=== PATIENT | male | born 1985 | race African-American/Black ===

== ENCOUNTER 2016-06-26 22:35 | Emergency (ER) | payer OTHER ==
[~2016-06-26] VITALS: Ht 175.3 cm; Wt 109.0 kg
[2016-06-26 22:46] VITALS: BP 145/104; PULSE 78; RESP 16; TEMP 98.7; O2SAT 96
--- NOTE | 2016-06-26 22:52 | PD ---
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 He states he was walking [place] when he began having chest pain. It was sudden onset. It was aching in nature and left-sided. It did not radiate. He felt sudden short of breath and had nausea and sweating with it as well. It resolved after about 5 minutes after he sat down in his car. He has had similar episodes like this multiple times last several months but has not been evaluated. No known history of CAD or hypertension. He endorses palpitations. He denies history of anxiety, tobacco, ethanol and illicit drug use. He is to drink lots of red bull but has cut back over the last several weeks. EMS states his vitals were normal and they gave him no medications as he was asymptomatic on arrival. He is currently asymptomatic. Allergies-Medications (Allergen,Severity, Reaction): Coded Allergies: No Known Allergies (Unverified , 06/26/16) Review of Systems Except as stated in HPI: all other systems reviewed are Neg Physical Exam Narrative GENERAL: Well-developed and well-nourished adult male in no acute distress. SKIN: Warm and dry. Good turgor without tenting. HEAD: Normocephalic and atraumatic. EYES: PERRL bilaterally, 5mm. EOMI bilaterally. No injection or icterus present. No proptosis. Lids without edema or erythema. ENT: Buccal mucosa pink and moist. Oropharynx free of erythema, tonsillar hypertrophy, masses, swelling, asymmetry and exudates. Uvula midline and airway patent. NECK: Supple, no midline tenderness, crepitus or step-offs. Trachea midline, no JVD. No cervical or facial lymphadenopathy. CARDIOVASCULAR: Regular rate and rhythm without murmurs, rubs, clicks or gallops. Radial and posterior tibial pulses 2+ bilaterally. No pedal edema. RESPIRATORY: Clear to auscultation bilaterally with symmetrical rise and fall, no distress or use of accessory muscles. GASTROINTESTINAL: Non-tender, non-distended. Normal bowel sounds all 4 quadrants. No masses or organomegaly present. MUSCULOSKELETAL: Patient freely moving all four extremities spontaneously. Extremities without clubbing, cyanosis, or edema. No obvious deformities. NEUROLOGIC: CN II-XII grossly intact. Awake and alert. Motor grossly within normal limits. Normal speech. PSYCHIATRIC: Appropriate mood and affect; insight and judgment normal. Data Data Last Documented VS Vital Signs Date Time Temp Pulse Resp B/P Pulse Ox O2 Delivery O2 Flow Rate FiO2 06/26/16 22:46 98.7 78 16 145/104 96 Orders Electrocardiogram (06/26/16 22:47) B-Type Natriuretic Peptide (06/26/16 22:47) Ckmb (Isoenzyme) Profile (06/26/16 22:47) Complete Blood Count With Diff (06/26/16 22:47) Comprehensive Metabolic Panel (06/26/16 22:47) Magnesium (Mg) (06/26/16 22:47) Prothrombin Time / Inr (Pt) (06/26/16 22:47) Act Partial Throm Time (Ptt) (06/26/16 22:47) Troponin I (06/26/16 22:47) Lipase (06/26/16 22:47) Chest, Single Ap (06/26/16 22:47) Ecg Monitoring (06/26/16 22:47) Bilateral Bp Monitoring (06/26/16 22:47) Iv Access Insert/Monitor (06/26/16 22:47) Oximetry (06/26/16 22:47) Oxygen Administration (06/26/16 22:47) Aspirin Chew (Aspirin Chew) (06/26/16 23:15) D-Dimer (06/26/16 23:17) MDM Medical Decision Making Medical Screen Exam Complete: Yes Emergency Medical Condition: Yes Differential Diagnosis ACS versus pericarditis versus pneumonia versus pancreatitis versus gastritis versus anxiety Narrative Course 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 His partner called 911 after he was having chest pain while walking [place] the [place]. He does have concerning components for ischemia by history. Review of 12-lead performed by EMS reveals no acute ST changes. EKG shows normal sinus rhythm with a rate of 68. There is some T- wave inversion in lead 3 and some T-wave flattening in lead aVF. Peaked T waves in V2 through V4. Patient was given aspirin 162 mg even though he was asymptomatic given the history is suggestive of ischemia and there is some T- wave changes. Chest x-ray and labs pending. Patient was signed out to Dr. Patino. Diagnosis Primary Impression: Chest pain Qualified Code: R07.9 - Chest pain, unspecified type Condition: Stable Junaid Pedersen III Jun 26, 2016 22:52
--- NOTE | 2016-06-26 23:09 | RADRPT ---
EXAM DATE/TIME: 06/26/2016 22:55 [facility] COMPARISON: No previous studies available for comparison. INDICATIONS : Chest pain. MEDICAL HISTORY : None. SURGICAL HISTORY : None. ENCOUNTER: Initial ACUITY: 1 day PAIN SCORE: 7/10 LOCATION: Bilateral chest FINDINGS: A single view of the chest demonstrates the lungs to be symmetrically aerated without evidence of mas s, infiltrate or effusion. The cardiomediastinal contours are unremarkable. Osseous structures are intact. CONCLUSION: Normal examination. Josue Herndon Jr., MD on June 26, 2016 at 23:08 Board Certified Radiologist. This report was verified electronically.
[2016-06-26] MEDS ORDERED: ASPIRIN 81 MG CHEW TAB PO ONE ×2 (23:15→23:45)
[2016-06-26 23:57] LABS: AUTOMATED NEUTROPHIL # 2.5 TH/MM3 (1.8-7.7); BASOPHIL % 0.8 % (0.0-2.0); EOSINOPHIL # 0.1 TH/MM3 (0-0.4); EOSINOPHIL % 2.4 % (0.0-4.0); HEMATOCRIT 41.7 % (39.0-51.0); HEMO FLAGS DIFF FINAL; LYMPH % 39.2 % (9.0-44.0); MEAN CORPUSCULAR HEMOGLOBIN 31.3 PG (27.0-34.0); MEAN CORPUSCULAR HGB CONC 34.4 % (32.0-36.0); MONO % 9.3 % (0.0-8.0); NEUT % 48.3 % (16.0-70.0); PLATELET COUNT 184 TH/MM3 (150-450); RED BLOOD COUNT 4.58 MIL/MM3 (4.50-5.90); RED CELL DISTRIBUTION WIDTH 12.7 % (11.6-17.2); WHITE BLOOD COUNT 5.2 TH/MM3 (4.0-11.0)
[2016-06-27] VITALS: BP 140/88; PULSE 80; RESP 16; O2SAT 100
[2016-06-27 00:11] LABS: APTT (PATIENT) 32.4 SEC (24.3-30.1); PROTHROMBIN TIME - PATIENT 11.3 SEC (9.8-11.6)
[2016-06-27 00:14] LABS: ALT (GPT) 81 U/L (12-78); ANION GAP 9 MEQ/L (5-15); AST (GOT) 35 U/L (15-37); BICARBONATE 22.9 MEQ/L (21.0-32.0); BLOOD UREA NITROGEN 21 MG/DL (7-18); CHLORIDE 108 MEQ/L (98-107); GLOMERULAR FILTRATION RATE 75 ML/MIN (>89); MAGNESIUM 1.9 MG/DL (1.5-2.5); SODIUM (NA) 140 MEQ/L (136-145)
[2016-06-27 00:18] LABS: ALKALINE PHOSPHATASE 59 U/L (45-117); CREATINE KINASE 174 U/L (39-308); TOTAL BILIRUBIN ADULT 0.3 MG/DL (0.2-1.0)
[2016-06-27 00:31] LABS: CKMB 0.7 NG/ML (0.5-3.6)
--- NOTE | 2016-06-27 01:41 | PD ---
Physical Exam Date Seen by Provider: Jun 27, 2016 Time Seen by Provider: 01:39 Narrative 30-year-old male came in with history of chest pain. He was brought in by EMS and seen by the PA. I was supervising him. All his blood test results of back including troponin and d-dimer. Everything is within normal limit. Given his low likelihood of coronary artery disease due to the age I will discharge him at this point. Patient is feeling comfortable. Data Data Last Documented VS Vital Signs Date Time Temp Pulse Resp B/P Pulse Ox O2 Delivery O2 Flow Rate FiO2 06/27/16 00:00 80 16 140/88 100 Nasal Cannula 2 06/26/16 22:46 98.7 Orders Electrocardiogram (06/26/16 22:47) B-Type Natriuretic Peptide (06/26/16 22:47) Ckmb (Isoenzyme) Profile (06/26/16 22:47) Complete Blood Count With Diff (06/26/16 22:47) Comprehensive Metabolic Panel (06/26/16 22:47) Magnesium (Mg) (06/26/16 22:47) Prothrombin Time / Inr (Pt) (06/26/16 22:47) Act Partial Throm Time (Ptt) (06/26/16 22:47) Troponin I (06/26/16 22:47) Lipase (06/26/16 22:47) Chest, Single Ap (06/26/16 22:47) Ecg Monitoring (06/26/16 22:47) Bilateral Bp Monitoring (06/26/16 22:47) Iv Access Insert/Monitor (06/26/16 22:47) Oximetry (06/26/16 22:47) Oxygen Administration (06/26/16 22:47) Aspirin Chew (Aspirin Chew) (06/26/16 23:15) Aspirin Chew (Aspirin Chew) (06/26/16 23:45) D-Dimer (06/26/16 22:50) CKMB (06/26/16 22:50) CKMB% (06/26/16 22:50) Labs Laboratory Tests Test 06/26/16 22:50 White Blood Count 5.2 TH/MM3 Red Blood Count 4.58 MIL/MM3 Hemoglobin 14.3 GM/DL Hematocrit 41.7 % Mean Corpuscular Volume 91.0 FL Mean Corpuscular Hemoglobin 31.3 PG Mean Corpuscular Hemoglobin 34.4 % Concent Red Cell Distribution Width 12.7 % Platelet Count 184 TH/MM3 Mean Platelet Volume 10.0 FL Neutrophils (%) (Auto) 48.3 % Lymphocytes (%) (Auto) 39.2 % Monocytes (%) (Auto) 9.3 % Eosinophils (%) (Auto) 2.4 % Basophils (%) (Auto) 0.8 % Neutrophils # (Auto) 2.5 TH/MM3 Lymphocytes # (Auto) 2.0 TH/MM3 Monocytes # (Auto) 0.5 TH/MM3 Eosinophils # (Auto) 0.1 TH/MM3 Basophils # (Auto) 0.0 TH/MM3 CBC Comment DIFF FINAL Differential Comment Prothrombin Time 11.3 SEC Prothromb Time International 1.0 RATIO Ratio Activated Partial 32.4 SEC Thromboplast Time D-Dimer Quantitative (PE/DVT) LESS THAN 0.19 MG/L FEU Sodium Level 140 MEQ/L Potassium Level 4.0 MEQ/L Chloride Level 108 MEQ/L Carbon Dioxide Level 22.9 MEQ/L Anion Gap 9 MEQ/L Blood Urea Nitrogen 21 MG/DL Creatinine 1.15 MG/DL Estimat Glomerular Filtration 75 ML/MIN Rate Random Glucose 77 MG/DL Calcium Level 8.5 MG/DL Magnesium Level 1.9 MG/DL Total Bilirubin 0.3 MG/DL Aspartate Amino Transf 35 U/L (AST/SGOT) Alanine Aminotransferase 81 U/L (ALT/SGPT) Alkaline Phosphatase 59 U/L Total Creatine Kinase 174 U/L Creatine Kinase MB 0.7 NG/ML Troponin I LESS THAN 0.02 NG/ML B-Type Natriuretic Peptide LESS THAN 2 PG/ML Total Protein 7.2 GM/DL Albumin 3.9 GM/DL Lipase 93 U/L [facility] Supervised Visit with VALERIA: Yes Interpretation(s) Twelve-lead EKG was reviewed by me. Normal sinus rhythm, normal axis, nonspecific ST-T wave changes. Heart rate of 68 bpm. Diagnosis Primary Impression: Chest pain Qualified Code: R07.9 - Chest pain, unspecified type Referrals: Primary Care Physician 2 days Additional Instruction: Please follow-up with your primary care. Return to the ER if the condition worsens or any other new concerns. Disposition: 01 DISCHARGE HOME Condition: Stable Sharmin Patino MD Jun 27, 2016 01:41
--- NOTE | 2016-06-27 11:23 | EKG ---
Date Performed: 06/26/2016 Time Performed: 22:47:11 PTAGE: 30 years EKG: Sinus rhythm NONSPECIFIC T-WAVE ABNORMALITY BORDERLINE ECG NO PREVIOUS TRACING DOCTOR: Bud Rosario Interpretating Date/Time 06/27/2016 11:22:21
== END 2016-06-27 01:50 | disposition home or self-care (01) ==
LOC: NEPE 22:35
DX: R07.9 Chest pain, unspecified (principal); R94.31 Abnormal electrocardiogram [ECG] [EKG]
CPT/HCPCS: 71010; 80053; 82550; 82552; 83690; 83735; 83880; 84484; 85025; 85379; 85610; 85730; 93005

== ENCOUNTER 2016-11-12 20:27 | Emergency (ER) | payer OTHER ==
[~2016-11-12] VITALS: Ht 175.3 cm; Wt 109.0 kg
[2016-11-12 20:32] VITALS: BP 143/92; PULSE 85; RESP 16; TEMP 98.4; O2SAT 95
[2016-11-12] MEDS ORDERED: KETOROLAC TROMETHAMINE 30 MG/ML (IVP) VIAL IV PUSH ONE ×2 (20:45→22:45)
[2016-11-12] MEDS ORDERED: SODIUM CHLORIDE 0.9% FLUSH 10 ML FLUSH IVF PRN (20:45)
--- NOTE | 2016-11-12 20:51 | PD ---
HPI Chief Complaint: Chest Pain Time Seen by Provider: 20:40 Travel History International Travel<30 days: No Contact w/Intl Traveler<30days: No Traveled to known affect area: No History of Present Illness HPI Patient is a 31-year-old male who presents to emergency room with complaints of chest pain. Patient reports that he began to have chest pain around 6 or 7 PM tonight while sitting at his desk. Patient describes the pain as pressure to the right side of his chest, nonradiating in nature. Patient does not have any shortness of breath or diaphoresis with symptoms. Patient reports that he has had similar chest pains in the past and was seen in the emergency room in June for this. Reports that he was discharged home with follow-up with music agent. Patient reports that he did follow-up with a music agent in [place], Dr. Bradley Jung and had a negative nuclear stress test, reports that he was not placed on any medications and was told to follow-up in the office in one year. Reports that he was never told why he had chest pain. Patient denies any trauma to his chest wall, denies any recent travels or trips. Reports that nothing makes his symptoms better or worse. Patient denies history of diabetes, hypertension, hyperlipidemia, denies history of smoking cigarettes or drug abuse. Patient denies family history of early coronary disease or [place]. PFSH Past Medical History Diminished Hearing: No Gastrointestinal Disorders: Yes (Hx ELEVATED LFTs) Tetanus Vaccination: Unknown Influenza Vaccination: Yes Past Surgical History Surgical History: No Previous Surgery Family History Family History: Negative Social History Alcohol Use: No Tobacco Use: No Substance Use: No Allergies-Medications (Allergen,Severity, Reaction): Coded Allergies: No Known Allergies (Unverified , 11/12/16) Reported Meds & Prescriptions Reported Meds & Active Scripts Active No Active Prescriptions or Reported Medications Review of Systems General / Constitutional: No: Fever Eyes: No: Visual changes HENT: No: Headaches Cardiovascular: Positive: Chest Pain or Discomfort, No: Palpitations, Irregular Rhythm, Tachycardia, Diaphoresis, Syncope, Dyspnea on exertion Respiratory: No: Shortness of Breath Gastrointestinal: No: Abdominal Pain Genitourinary: No: Dysuria Musculoskeletal: No: Pain Skin: No Rash Neurologic: No: Weakness Psychiatric: No: Depression Endocrine: No: Polydipsia Hematologic/Lymphatic: No: Easy Bruising Physical Exam Narrative GENERAL: No acute distress, nontoxic SKIN: Focused skin assessment warm/dry. HEAD: Atraumatic. Normocephalic. EYES: Pupils equal and round. No scleral icterus. No injection or drainage. ENT: No nasal bleeding or discharge. Mucous membranes pink and moist. NECK: Trachea midline. No JVD. CARDIOVASCULAR: Regular rate and rhythm. No murmur appreciated. RESPIRATORY: No accessory muscle use. Clear to auscultation. Breath sounds equal bilaterally. GASTROINTESTINAL: Abdomen soft, non-tender, nondistended. Hepatic and splenic margins not palpable. MUSCULOSKELETAL: No obvious deformities. No clubbing. No cyanosis. No edema. NEUROLOGICAL: Awake and alert. No obvious cranial nerve deficits. Motor grossly within normal limits. Normal speech. PSYCHIATRIC: Appropriate mood and affect; insight and judgment normal. Data Data Last Documented VS Vital Signs Date Time Temp Pulse Resp B/P Pulse Ox O2 Delivery O2 Flow Rate FiO2 11/12/16 22:51 18 11/12/16 20:36 85 95 Room Air 11/12/16 20:32 98.4 143/92 Orders Ckmb (Isoenzyme) Profile (11/12/16 20:41) Complete Blood Count With Diff (11/12/16 20:41) Comprehensive Metabolic Panel (11/12/16 20:41) D-Dimer (11/12/16 20:41) Magnesium (Mg) (11/12/16 20:41) Prothrombin Time / Inr (Pt) (11/12/16 20:41) Act Partial Throm Time (Ptt) (11/12/16 20:41) Troponin I (11/12/16 20:41) Lipase (11/12/16 20:41) Chest, Single Ap (11/12/16 20:41) Ecg Monitoring (11/12/16 20:41) Iv Access Insert/Monitor (11/12/16 20:41) Oximetry (11/12/16 20:41) Sodium Chloride 0.9% Flush (Ns Flush) (11/12/16 20:45) Ketorolac Inj (Toradol Inj) (11/12/16 20:45) CKMB (11/12/16 20:45) CKMB% (11/12/16 20:45) Electrocardiogram (11/12/16 20:36) Electrocardiogram (11/12/16 ) Ketorolac Inj (Toradol Inj) (11/12/16 22:45) Labs Laboratory Tests Test 11/12/16 20:45 White Blood Count 4.3 TH/MM3 Red Blood Count 4.67 MIL/MM3 Hemoglobin 14.5 GM/DL Hematocrit 42.2 % Mean Corpuscular Volume 90.4 FL Mean Corpuscular Hemoglobin 31.1 PG Mean Corpuscular Hemoglobin 34.4 % Concent Red Cell Distribution Width 13.5 % Platelet Count 180 TH/MM3 Mean Platelet Volume 9.8 FL Neutrophils (%) (Auto) 48.5 % Lymphocytes (%) (Auto) 37.1 % Monocytes (%) (Auto) 9.9 % Eosinophils (%) (Auto) 3.5 % Basophils (%) (Auto) 1.0 % Neutrophils # (Auto) 2.1 TH/MM3 Lymphocytes # (Auto) 1.6 TH/MM3 Monocytes # (Auto) 0.4 TH/MM3 Eosinophils # (Auto) 0.2 TH/MM3 Basophils # (Auto) 0.0 TH/MM3 CBC Comment DIFF FINAL Differential Comment Prothrombin Time 10.5 SEC Prothromb Time International 1.0 RATIO Ratio Activated Partial 31.3 SEC Thromboplast Time D-Dimer Quantitative (PE/DVT) LESS THAN 0.19 MG/L FEU Sodium Level 139 MEQ/L Potassium Level 4.5 MEQ/L Chloride Level 105 MEQ/L Carbon Dioxide Level 27.3 MEQ/L Anion Gap 7 MEQ/L Blood Urea Nitrogen 17 MG/DL Creatinine 1.14 MG/DL Estimat Glomerular Filtration 91 ML/MIN Rate Random Glucose 88 MG/DL Calcium Level 8.9 MG/DL Magnesium Level 2.3 MG/DL Total Bilirubin 0.4 MG/DL Aspartate Amino Transf 27 U/L (AST/SGOT) Alanine Aminotransferase 48 U/L (ALT/SGPT) Alkaline Phosphatase 68 U/L Total Creatine Kinase 374 U/L Creatine Kinase MB 2.0 NG/ML Creatine Kinase MB % 0.5 % Troponin I LESS THAN 0.02 NG/ML Total Protein 7.6 GM/DL Albumin 4.0 GM/DL Lipase 93 U/L MDM Medical Decision Making Medical Screen Exam Complete: Yes Emergency Medical Condition: Yes Interpretation(s) Vital Signs Date Time Temp Pulse Resp B/P Pulse Ox O2 Delivery O2 Flow Rate FiO2 11/12/16 20:36 85 16 95 Room Air 11/12/16 20:32 98.4 85 16 143/92 95 EKG at 2035: NSR at 82bpm, qt/qtc: 342/380, no acute st or t wave changes Differential Diagnosis Costochondritis, ACS, PE, pneumothorax, chest wall strain, electrolyte abnormality Narrative Course Patient is a 31-year-old male who presents to emergency room for evaluation of chest pain. Patient reports that he began to have chest pain while sitting at his desk tonight around 6 -7 PM tonight. Patient reports that his right-sided chest pain feels similar to his previous episodes of chest pain he had in June. Reports that sometimes his pain goes from the right side of his chest to the left side of his chest. Patient reports that he had a workup by a music agent including nuclear stress test in June which was negative. Patient here for similar symptoms of chest pain. EKG is benign appearing, patient was placed on a registered nurse cardiac, labs including x-ray of the chest ordered. One set of cardiac enzymes ordered to evaluate for infectious etiology of chest pain including but not limited to endocarditis and pericarditis. Plan to give patient a dose of IV Toradol, will monitor patient. Patient with no risk factors for ACS, with no history of hypertension or diabetes or hyperlipidemia or early family history of coronary disease or [place]. I do not think that patient is having an acute coronary symptoms at this time, he also had a negative stress test in June. Plan to monitor and rule out for other etiology of symptoms. Laboratory Tests Test 11/12/16 20:45 White Blood Count 4.3 TH/MM3 (4.0-11.0) Red Blood Count 4.67 MIL/MM3 (4.50-5.90) Hemoglobin 14.5 GM/DL (13.0-17.0) Hematocrit 42.2 % (39.0-51.0) Mean Corpuscular Volume 90.4 FL (80.0-100.0) Mean Corpuscular Hemoglobin 31.1 PG (27.0-34.0) Mean Corpuscular Hemoglobin 34.4 % Concent (32.0-36.0) Red Cell Distribution Width 13.5 % (11.6-17.2) Platelet Count 180 TH/MM3 (150-450) Mean Platelet Volume 9.8 FL (7.0-11.0) Neutrophils (%) (Auto) 48.5 % (16.0-70.0) Lymphocytes (%) (Auto) 37.1 % (9.0-44.0) Monocytes (%) (Auto) 9.9 % (0.0-8.0) Eosinophils (%) (Auto) 3.5 % (0.0-4.0) Basophils (%) (Auto) 1.0 % (0.0-2.0) Neutrophils # (Auto) 2.1 TH/MM3 (1.8-7.7) Lymphocytes # (Auto) 1.6 TH/MM3 (1.0-4.8) Monocytes # (Auto) 0.4 TH/MM3 (0-0.9) Eosinophils # (Auto) 0.2 TH/MM3 (0-0.4) Basophils # (Auto) 0.0 TH/MM3 (0-0.2) CBC Comment DIFF FINAL Differential Comment Prothrombin Time 10.5 SEC (9.8-11.6) Prothromb Time International 1.0 RATIO Ratio Activated Partial 31.3 SEC Thromboplast Time (24.3-30.1) D-Dimer Quantitative (PE/DVT) LESS THAN 0.19 MG/L FEU (0.00-0.50) Sodium Level 139 MEQ/L (136-145) Potassium Level 4.5 MEQ/L (3.5-5.1) Chloride Level 105 MEQ/L (98-107) Carbon Dioxide Level 27.3 MEQ/L (21.0-32.0) Anion Gap 7 MEQ/L (5-15) Blood Urea Nitrogen 17 MG/DL (7-18) Creatinine 1.14 MG/DL (0.60-1.30) Estimat Glomerular Filtration 91 ML/MIN (>89) Rate Random Glucose 88 MG/DL (74-106) Calcium Level 8.9 MG/DL (8.5-10.1) Magnesium Level 2.3 MG/DL (1.5-2.5) Total Bilirubin 0.4 MG/DL (0.2-1.0) Aspartate Amino Transf 27 U/L (15-37) (AST/SGOT) Alanine Aminotransferase 48 U/L (12-78) (ALT/SGPT) Alkaline Phosphatase 68 U/L (45-117) Total Creatine Kinase 374 U/L (39-308) Creatine Kinase MB 2.0 NG/ML (0.5-3.6) Creatine Kinase MB % 0.5 % (0.0-4.0) Troponin I LESS THAN 0.02 NG/ML (0.02-0.05) Total Protein 7.6 GM/DL (6.4-8.2) Albumin 4.0 GM/DL (3.4-5.0) Lipase 93 U/L (73-393) Last Impressions Chest X-Ray 11/12/162040 Signed Impressions: Service Date/Time: Saturday, November 12, 2016 20:57 - CONCLUSION: No acute disease. No significant change has occurred. Shabbir Soto MD All labs and all studies reviewed patient in detail. Patient has resolution of chest pain at this time after given 30 mg of IV Toradol. Repeat EKG at discharge with no acute changes - ekg similar to earlier ekg. I do feel Safe discharging patient to home as he had a negative stress test in June and reports that he had a benign holter monitoring by his music agent. I did offer patient cardiac observation in the chest pain unit for monitoring, patient does not want to be admitted to the hospital. Patient will call his music agent first thing in the morning for earliest follow-up appointment. Patient understands that he may return to the emergency room at any time for further evaluation of the symptoms. Overall, patient does have low risk for cardiac chest pain. Signs and symptoms of when to return to emergency room was reviewed with patient in detail. Diagnosis Primary Impression: Chest pain Qualified Code: R07.9 - Chest pain, unspecified type Patient Instructions: General Instructions Additional Instructions: Please follow-up with your music agent as well as her primary care doctor as soon as possible Return to the emergency room as needed or if symptoms return Scripts No Active Prescriptions or Reported Meds Disposition: 01 DISCHARGE HOME Condition: Stable Tanika Steve DO November 12, 2016 20:51 Tanika Steve DO November 12, 2016 20:51
[2016-11-12 21:11] LABS: AUTOMATED NEUTROPHIL # 2.1 TH/MM3 (1.8-7.7); EOSINOPHIL # 0.2 TH/MM3 (0-0.4); EOSINOPHIL % 3.5 % (0.0-4.0); HEMATOCRIT 42.2 % (39.0-51.0); HEMO FLAGS DIFF FINAL; LYMPH % 37.1 % (9.0-44.0); LYMPHOCYTE # 1.6 TH/MM3 (1.0-4.8); MEAN CELL VOLUME 90.4 FL (80.0-100.0); MEAN CORPUSCULAR HEMOGLOBIN 31.1 PG (27.0-34.0); MEAN CORPUSCULAR HGB CONC 34.4 % (32.0-36.0); MONO % 9.9 % (0.0-8.0); NEUT % 48.5 % (16.0-70.0); PLATELET COUNT 180 TH/MM3 (150-450); RED BLOOD COUNT 4.67 MIL/MM3 (4.50-5.90); RED CELL DISTRIBUTION WIDTH 13.5 % (11.6-17.2); WHITE BLOOD COUNT 4.3 TH/MM3 (4.0-11.0)
[2016-11-12 21:31] LABS: APTT (PATIENT) 31.3 SEC (24.3-30.1); PROTHROMBIN TIME - PATIENT 10.5 SEC (9.8-11.6)
[2016-11-12 21:45] LABS: ALKALINE PHOSPHATASE 68 U/L (45-117); ALT (GPT) 48 U/L (12-78); ANION GAP 7 MEQ/L (5-15); AST (GOT) 27 U/L (15-37); BICARBONATE 27.3 MEQ/L (21.0-32.0); BLOOD UREA NITROGEN 17 MG/DL (7-18); CHLORIDE 105 MEQ/L (98-107); CREATINE KINASE 374 U/L (39-308); GLOMERULAR FILTRATION RATE 91 ML/MIN (>89); MAGNESIUM 2.3 MG/DL (1.5-2.5); POTASSIUM 4.5 MEQ/L (3.5-5.1); SODIUM (NA) 139 MEQ/L (136-145); TOTAL BILIRUBIN ADULT 0.4 MG/DL (0.2-1.0)
--- NOTE | 2016-11-12 22:23 | RADRPT ---
EXAM DATE/TIME: 11/12/2016 20:57 [facility] COMPARISON: CHEST SINGLE AP, June 26, 2016, 22:55. INDICATIONS : Chest pain. MEDICAL HISTORY : None. SURGICAL HISTORY : None. ENCOUNTER: Initial ACUITY: 1 day PAIN SCORE: 7/10 LOCATION: Bilateral chest FINDINGS: A single view of the chest demonstrates the lungs to be symmetrically aerated without evidence of mas s, infiltrate or effusion. The cardiomediastinal contours are unremarkable. Osseous structures are intact. CONCLUSION: No acute disease. No significant change has occurred. Shabbir Soto MD on November 12, 2016 at 22:21 Board Certified Radiologist. This report was verified electronically.
[2016-11-13 00:04] VITALS: BP 142/99; PULSE 85; RESP 18; O2SAT 98
--- NOTE | 2016-11-13 15:32 | EKG ---
Date Performed: 11/12/2016 Time Performed: 20:36:16 PTAGE: 31 years EKG: Sinus rhythm NORMAL ECG Compared to prior tracing no significant change PREVIOUS TRACING 06/26/2016 22.47.11 DOCTOR: Ezequiel Cornejo Interpretating Date/Time 11/13/2016 15:31:46
--- NOTE | 2016-11-13 15:32 | EKG ---
Date Performed: 11/12/2016 Time Performed: 22:45:05 PTAGE: 31 years EKG: Sinus rhythm NORMAL ECG Since PREVIOUS TRACING , no significant change noted PREVIOUS TRACING 11/12/2016 20.36.16 DOCTOR: Ezequiel Cornejo Interpretating Date/Time 11/13/2016 15:32:20
== END 2016-11-13 | disposition home or self-care (01) ==
LOC: NEPE 20:27
DX: R07.9 Chest pain, unspecified (principal); R79.89 Other specified abnormal findings of blood chemistry
CPT/HCPCS: 71010; 80053; 82550; 82552; 83690; 83735; 84484; 85025; 85379; 85610; 85730; 93005; 96374; 96376; 99284; J1885

== ENCOUNTER 2017-04-07 12:10 | Emergency (ER) | payer OTHER ==
[~2017-04-07] VITALS: Ht 175.3 cm; Wt 110.0 kg
[2017-04-07 12:22] VITALS: BP 162/92; PULSE 83; RESP 18; TEMP 99.1; O2SAT 97
[2017-04-07] MEDS ORDERED: SODIUM CHLORIDE 0.9% FLUSH 10 ML FLUSH IVF PRN (12:30)
[2017-04-07] MEDS ORDERED: SODIUM CHLOR 0.9% 1000 ML INJ 1,000 ML IV ONE (12:30)
--- NOTE | 2017-04-07 12:39 | PD ---
HPI Chief Complaint: Cardiac Complaint Time Seen by Provider: 12:25 Travel History International Travel<30 days: No Contact w/Intl Traveler<30days: No Traveled to known affect area: No History of Present Illness HPI This is a 31-year-old male with a history of enlarged heart, who presents today with complaints of cramping of his right upper and right lower extremity earlier today. The patient reports that when he woke up he felt a crampy sensation in his right forearm and right foot. He denies any shortness of breath, chest pain, chest pressure. He states she's been seen by supervising producer for his enlarged heart and they told him that at this point there is nothing that needs to be done. The patient denies any exertional activity. He denies working out in the heat. He states he drinks about 3 bottles of water a day. There are no other complaints time my examination. PFSH Past Medical History Diminished Hearing: No Gastrointestinal Disorders: Yes (Hx ELEVATED LFTs) Influenza Vaccination: No Family History Family Hypercholesterolemia: Yes Social History Alcohol Use: Yes (occasionally) Tobacco Use: No Substance Use: No Allergies-Medications (Allergen,Severity, Reaction): Coded Allergies: No Known Allergies (Unverified , 04/07/17) Reported Meds & Prescriptions Reported Meds & Active Scripts Active No Active Prescriptions or Reported Medications Review of Systems Except as stated in HPI: all other systems reviewed are Neg General / Constitutional: No: Fever, Chills HENT: No: Headaches, Neck Pain, Other Cardiovascular: No: Chest Pain or Discomfort (no history of neck injury.), Palpitations, Tachycardia Respiratory: No: Cough, Shortness of Breath Gastrointestinal: No: Nausea, Vomiting, Abdominal Pain Musculoskeletal: Positive: Cramping (right forearm and right foot and ankle. Denies right arm cramping but still states he has some tingling in his right medial foot), No: Weakness, Pain Skin: No Rash, No Lesions Neurologic: Positive: Other (cramping of the right forearm and right foot and ankle.), No: Weakness, Dizziness, Change in Mentation, Slurred Speech Physical Exam Narrative GENERAL: Well developed well-nourished male in no acute respiratory distress. SKIN: Focused skin assessment warm/dry. HEAD: Atraumatic. Normocephalic. EYES: No scleral icterus. No injection or drainage. ENT: No nasal bleeding or discharge. Mucous membranes pink and moist. NECK: Trachea midline. Supple. CARDIOVASCULAR: Regular rate and rhythm. No murmur appreciated. No murmurs appreciated. RESPIRATORY: No accessory muscle use. Clear to auscultation. Breath sounds equal bilaterally. GASTROINTESTINAL: Abdomen soft, non-tender, nondistended. MUSCULOSKELETAL: No obvious deformities. No clubbing. No cyanosis. No edema. NEUROLOGICAL: Awake and alert. No obvious cranial nerve deficits. Motor grossly within normal limits. Normal speech. Patient states he has a slight tingle to his medial right foot otherwise no other symptoms at this time. PSYCHIATRIC: Appropriate mood and affect; insight and judgment normal. Data Data Last Documented VS Vital Signs Date Time Temp Pulse Resp B/P (MAP) Pulse Ox O2 Delivery O2 Flow Rate FiO2 04/07/17 13:41 99 Room Air 04/07/17 13:41 04/07/17 12:22 99.1 83 18 Orders Orders Basic Metabolic Panel (Bmp) (04/07/17 12:25) Ckmb (Isoenzyme) Profile (04/07/17 12:25) Complete Blood Count With Diff (04/07/17 12:25) Magnesium (Mg) (04/07/17 12:25) Prothrombin Time / Inr (Pt) (04/07/17 12:25) Act Partial Throm Time (Ptt) (04/07/17 12:25) Troponin I (04/07/17 12:25) Chest, Single Ap (04/07/17 12:25) Ecg Monitoring (04/07/17 12:25) Bilateral Bp Monitoring (04/07/17 12:25) Iv Access Insert/Monitor (04/07/17 12:25) Oximetry (04/07/17 12:25) Oxygen Administration (04/07/17 12:25) Sodium Chloride 0.9% Flush (Ns Flush) (04/07/17 12:30) Sodium Chlor 0.9% 1000 Ml Inj (Ns 1000 M (04/07/17 12:30) CKMB (04/07/17 12:29) CKMB% (04/07/17 12:29) Ct Brain W/O Iv Contrast(Rout) (04/07/17 14:05) Labs Laboratory Tests Test 04/07/17 12:29 White Blood Count 4.8 TH/MM3 Red Blood Count 4.66 MIL/MM3 Hemoglobin 14.6 GM/DL Hematocrit 42.5 % Mean Corpuscular Volume 91.2 FL Mean Corpuscular Hemoglobin 31.3 PG Mean Corpuscular Hemoglobin Concent 34.4 % Red Cell Distribution Width 13.1 % Platelet Count 188 TH/MM3 Mean Platelet Volume 9.6 FL Neutrophils (%) (Auto) 49.4 % Lymphocytes (%) (Auto) 36.1 % Monocytes (%) (Auto) 10.9 % Eosinophils (%) (Auto) 2.8 % Basophils (%) (Auto) 0.8 % Neutrophils # (Auto) 2.4 TH/MM3 Lymphocytes # (Auto) 1.7 TH/MM3 Monocytes # (Auto) 0.5 TH/MM3 Eosinophils # (Auto) 0.1 TH/MM3 Basophils # (Auto) 0.0 TH/MM3 CBC Comment DIFF FINAL Differential Comment Prothrombin Time 10.7 SEC Prothromb Time International Ratio 1.0 RATIO Activated Partial Thromboplast Time 31.5 SEC Blood Urea Nitrogen 17 MG/DL Creatinine 0.98 MG/DL Random Glucose 87 MG/DL Calcium Level 8.9 MG/DL Magnesium Level 2.1 MG/DL Sodium Level 137 MEQ/L Potassium Level 4.2 MEQ/L Chloride Level 106 MEQ/L Carbon Dioxide Level 26.3 MEQ/L Anion Gap 5 MEQ/L Estimat Glomerular Filtration Rate 109 ML/MIN Total Creatine Kinase 184 U/L Creatine Kinase MB 1.2 NG/ML Troponin I LESS THAN 0.02 NG/ML MDM Medical Decision Making Medical Screen Exam Complete: Yes Emergency Medical Condition: Yes Interpretation(s) Laboratory Tests Test 04/07/17 12:29 White Blood Count 4.8 TH/MM3 (4.0-11.0) Red Blood Count 4.66 MIL/MM3 (4.50-5.90) Hemoglobin 14.6 GM/DL (13.0-17.0) Hematocrit 42.5 % (39.0-51.0) Mean Corpuscular Volume 91.2 FL (80.0-100.0) Mean Corpuscular Hemoglobin 31.3 PG (27.0-34.0) Mean Corpuscular Hemoglobin Concent 34.4 % (32.0-36.0) Red Cell Distribution Width 13.1 % (11.6-17.2) Platelet Count 188 TH/MM3 (150-450) Mean Platelet Volume 9.6 FL (7.0-11.0) Neutrophils (%) (Auto) 49.4 % (16.0-70.0) Lymphocytes (%) (Auto) 36.1 % (9.0-44.0) Monocytes (%) (Auto) 10.9 % (0.0-8.0) Eosinophils (%) (Auto) 2.8 % (0.0-4.0) Basophils (%) (Auto) 0.8 % (0.0-2.0) Neutrophils # (Auto) 2.4 TH/MM3 (1.8-7.7) Lymphocytes # (Auto) 1.7 TH/MM3 (1.0-4.8) Monocytes # (Auto) 0.5 TH/MM3 (0-0.9) Eosinophils # (Auto) 0.1 TH/MM3 (0-0.4) Basophils # (Auto) 0.0 TH/MM3 (0-0.2) CBC Comment DIFF FINAL Differential Comment Prothrombin Time 10.7 SEC (9.8-11.6) Prothromb Time International Ratio 1.0 RATIO Activated Partial Thromboplast Time 31.5 SEC (24.3-30.1) Blood Urea Nitrogen 17 MG/DL (7-18) Creatinine 0.98 MG/DL (0.60-1.30) Random Glucose 87 MG/DL (74-106) Calcium Level 8.9 MG/DL (8.5-10.1) Magnesium Level 2.1 MG/DL (1.5-2.5) Sodium Level 137 MEQ/L (136-145) Potassium Level 4.2 MEQ/L (3.5-5.1) Chloride Level 106 MEQ/L (98-107) Carbon Dioxide Level 26.3 MEQ/L (21.0-32.0) Anion Gap 5 MEQ/L (5-15) Estimat Glomerular Filtration Rate 109 ML/MIN (>89) Total Creatine Kinase 184 U/L (39-308) Creatine Kinase MB 1.2 NG/ML (0.5-3.6) Troponin I LESS THAN 0.02 NG/ML Differential Diagnosis Atypical ACS versus electrolyte imbalance versus muscle cramps versus TIA Narrative Course 31 yo male presents today with complaints of cramps in his right upper extremity and right lower foot and ankle. She reports the symptoms nearly resolved by time I saw him. He drinks roughly 1.5 L of water a day. He denies any heat exhaustion or excessive heat exposure. Patient denies any recent strenuous activity. CT scan of brain, chest x-ray are within normal limits. EKG shows no evidence of acute findings. This was compared with a previous EKG and shows no changes. Lab work including cardiac enzymes are negative. He'll be discharged. To be able to go back to work tomorrow. He is instructed to follow up with primary care physician and return if he develops any new symptoms. Diagnosis Primary Impression: right upper and lower extremity cramping. Additional Instructions: Follow up with primary care physician. Return if any new findings or symptoms. Scripts No Active Prescriptions or Reported Meds Disposition: 01 DISCHARGE HOME Condition: Stable Jorge Hamm MD Apr 07, 2017 12:39
[2017-04-07 12:56] LABS: AUTOMATED NEUTROPHIL # 2.4 TH/MM3 (1.8-7.7); BASOPHIL % 0.8 % (0.0-2.0); EOSINOPHIL # 0.1 TH/MM3 (0-0.4); EOSINOPHIL % 2.8 % (0.0-4.0); HEMATOCRIT 42.5 % (39.0-51.0); HEMO FLAGS DIFF FINAL; LYMPH % 36.1 % (9.0-44.0); LYMPHOCYTE # 1.7 TH/MM3 (1.0-4.8); MEAN CELL VOLUME 91.2 FL (80.0-100.0); MEAN CORPUSCULAR HEMOGLOBIN 31.3 PG (27.0-34.0); MEAN CORPUSCULAR HGB CONC 34.4 % (32.0-36.0); MONO % 10.9 % (0.0-8.0); NEUT % 49.4 % (16.0-70.0); PLATELET COUNT 188 TH/MM3 (150-450); RED BLOOD COUNT 4.66 MIL/MM3 (4.50-5.90); RED CELL DISTRIBUTION WIDTH 13.1 % (11.6-17.2); WHITE BLOOD COUNT 4.8 TH/MM3 (4.0-11.0)
[2017-04-07 13:07] LABS: APTT (PATIENT) 31.5 SEC (24.3-30.1); PROTHROMBIN TIME - PATIENT 10.7 SEC (9.8-11.6)
[2017-04-07 13:32] LABS: ANION GAP 5 MEQ/L (5-15); BICARBONATE 26.3 MEQ/L (21.0-32.0); BLOOD UREA NITROGEN 17 MG/DL (7-18); CHLORIDE 106 MEQ/L (98-107); CREATINE KINASE 184 U/L (39-308); GLOMERULAR FILTRATION RATE 109 ML/MIN (>89); MAGNESIUM 2.1 MG/DL (1.5-2.5); POTASSIUM 4.2 MEQ/L (3.5-5.1); SODIUM (NA) 137 MEQ/L (136-145)
[2017-04-07 13:41] VITALS: O2SAT 100
[2017-04-07 13:45] LABS: CKMB 1.2 NG/ML (0.5-3.6)
--- NOTE | 2017-04-07 15:05 | RADRPT ---
EXAM DATE/TIME: 04/07/2017 13:05 [facility] COMPARISON: CHEST SINGLE AP, November 12, 2016, 20:57. INDICATIONS : Right sided pain and numbness. MEDICAL HISTORY : None. SURGICAL HISTORY : None. ENCOUNTER: Initial ACUITY: 2 days PAIN SCORE: 2/10 LOCATION: Bilateral chest FINDINGS: A single view of the chest demonstrates the lungs to be symmetrically aerated without evidence of mas s, infiltrate or effusion. The cardiomediastinal contours are unremarkable. Osseous structures are intact. CONCLUSION: 1. No acute cardiopulmonary disease. Cristo Cardona MD on April 07, 2017 at 15:03 Board Certified Radiologist. This report was verified electronically.
--- NOTE | 2017-04-07 15:35 | RADRPT ---
EXAM DATE/TIME: 04/07/2017 14:41 [facility] COMPARISON: No previous studies available for comparison. INDICATIONS : Right upper and lower extremity pain today. RADIATION DOSE: 39.73 CTDIvol (mGy) MEDICAL HISTORY : None SURGICAL HISTORY : None. ENCOUNTER: Initial ACUITY: 1 day PAIN SCALE: 7/10 LOCATION: Right arm and leg TECHNIQUE: Multiple contiguous axial images were obtained of the head. Using automated exposure control and adj ustment of the mA and/or kV according to patient size, radiation dose was kept as low as reasonably a chievable to obtain optimal diagnostic quality images. DICOM format image data is available electro nically for review and comparison. FINDINGS: CEREBRUM: The ventricles are normal for age. No evidence of midline shift, mass lesion, hemorrhage or acute in farction. No extra-axial fluid collections are seen. POSTERIOR FOSSA: The cerebellum and brainstem are intact. The 4th ventricle is midline. The cerebellopontine angle i s unremarkable. EXTRACRANIAL: The visualized portion of the orbits is intact. SKULL: The calvaria is intact. No evidence of skull fracture. CONCLUSION: 1. No evidence of acute intracranial pathology. No masses are identified. Cristo Cardona MD on April 07, 2017 at 15:32 Board Certified Radiologist. This report was verified electronically.
== END 2017-04-07 17:36 | disposition home or self-care (01) ==
LOC: NEPE 12:10
DX: R25.2 Cramp and spasm (principal); I51.7 Cardiomegaly
CPT/HCPCS: 70450; 71010; 80048; 82550; 82552; 83735; 84484; 85025; 85610; 85730; 93005; 96360; 96361; 99285; J7030